=== PATIENT | male | born 1960 | race Caucasian/White ===

== ENCOUNTER 2016-12-30 12:06 | Emergency (ER) | payer BC ==
--- NOTE | 2016-12-30 15:50 | UC ---
Shoulder Pain HPI - HPI Summary HPI Summary: HELPING HIS BROTHER MOVE A FEW DAYS AGO AND FELT PAIN IN HIS RIGHT SHOULDER. SINCE THEN THE PAIN HAS WORSENED AND NOW HE HAS VERY LIMITED ROM. PAIN IS KEEPING HIM UP AT NIGHT. TYLENOL NOT HELPING. - History of Current Complaint Chief Complaint: UCUpperExtremity Stated Complaint: SHOULDER PAIN Time Seen by Provider: 12/30/16 15:44 Hx Obtained From: Patient Onset/Duration: Gradual Onset, Lasting Days, Still Present Timing: Constant Severity Initially: Mild Severity Currently: Moderate Location Of Pain: Is Discrete @ - RIGHT SHOULDER Pain Intensity: 8 Pain Scale Used: 0-10 Numeric Character: Sharp Aggravating Factor(s): Movement Alleviating Factor(s): Rest Associated Signs And Symptoms: Positive: Negative Related History: Dominant Hand Right - Allergies/Home Medications Allergies/Adverse Reactions: Allergies Allergy/AdvReac Type Severity Reaction Status Date / Time No Known Allergies Allergy Verified 12/30/16 13:37 Home Medications: Home Medications Acetaminophen [Acetaminophen Extra Stren] 2 tab PO TID PRN 12/30/16 [History Confirmed 12/30/16] PMH/Surg Hx/FS Hx/Imm Hx Endocrine History Of: Reports: Thyroid Disease - HYPO SECONDARY TO RADIATION [place] , Hypothyroidism Denies: Diabetes Cardiovascular History Of: Denies: Cardiac Disorders, Hypertension Respiratory History Of: Denies: COPD, Asthma GI/ History Of: Denies: Ulcer, Renal Disease Cancer History Of: Reports: Prostate Cancer - Surgical History Surgical History: Yes Surgery Procedure, Year, and Place: PROSTATE REMOVED IN AUGUST 2016 AT [facility]. - Family History Known Family History: Positive: Hypertension - Social History Alcohol Use: Occasionally Substance Use Type: None Smoking Status (MU): Never Smoked Tobacco Review of Systems Constitutional: Negative Skin: Negative Respiratory: Negative Cardiovascular: Negative Gastrointestinal: Negative Musculoskeletal: Arthralgia, Decreased ROM All Other Systems Reviewed And Are Negative: Yes Physical Exam Triage Information Reviewed: Yes Appearance: Well-Appearing, No Pain Distress, Well-Nourished Vital Signs: Initial Vital Signs Temp 98.7 F 12/30/16 13:40 Pulse 90 12/30/16 13:40 Resp 16 12/30/16 13:40 BP 149/92 12/30/16 13:40 Pulse Ox 99 12/30/16 13:40 Vital Signs Reviewed: Yes Eyes: Positive: Conjunctiva Clear ENT: Positive: Hearing grossly normal Neck: Positive: Supple, Nontender, No Lymphadenopathy Respiratory: Positive: No respiratory distress, No accessory muscle use Cardiovascular: Positive: Pulses Normal Abdomen Description: Positive: Soft Musculoskeletal: Positive: No Edema, ROM Limited @ - RIGHT SHOULDER LIMITED WITH BOTH PASSIVE AND ACTIVE ROM, Other: - TTP ANTERIOR RIGHT SHOULDER Neurological: Positive: Muscle Tone Normal Psychological: Positive: Age Appropriate Behavior Skin: Negative: rashes Diagnostics - Radiology RIGHT SHOULDER XRAY Xray Interpretation: Positive (See Comments) - 1. Negative for fracture or malalignment. 2. Mild AC joint osteoarthritis. Small inferior acromial bone spur. 3. Stigmata of calcific tendinopathy. Radiology Interpretation Completed By: Radiologist Shoulder Course/Dx - Differential Dx/Diagnosis Provider Diagnoses: RIGHT SHOULDER CALCIFIC TENDONITIS Discharge - Discharge Plan Condition: Stable Disposition: HOME Prescriptions: Hydrocodone-Acetaminophen [Lorcet 5-325 mg] 1 tab PO QID PRN #20 tab MDD 4 PRN Reason: Pain Naproxen [Naproxen EC] 500 mg PO BID PRN #30 tab PRN Reason: Pain Patient Education Materials: Calcific Tendinitis (ED) Referrals: Orlin Painting MD [Primary Care Provider] - If Needed Lida Rogers MD [Medical Doctor] - 5 Days Additional Instructions: XRAY SHOWS SOME OSTEOARTHRITIS AND CALCIFIC TENDINOPATHY CALCIFIC TENDINITIS/TENDINOSIS YOUR XRAY SHOWS A CALCIUM DEPOSIT IN THE TENDONS OF YOUR SHOULDER. THIS COULD BE CONTRIBUTING TO YOUR SYMPTOMS. SUCCESSFUL MANAGEMENT OFTEN CONSISTS OF MEDICATION, A SLING AND PHYSICAL THERAPY. OCCASIONALLY INJECTIONS MAY BE INDICATED. IN RARE CASES SURGERY MAY BE CONSIDERED. The onset of symptoms is usually spontaneous and is associated with the rapid development of excruciating shoulder pain and inability to sleep. The patient is exceedingly tender to palpation and has extreme pain with any attempted motion of the shoulder. There may be warmth and fullness. Elbow and hand motion are normal and circulation/neurologic examination is intact. FOLLOW-UP WITH [facility]TH[facility] FOR FURTHER EVALUATION AND MANAGEMENT
--- NOTE | 2016-12-30 16:16 | RAD ---
Indication: 4 days RIGHT shoulder pain following twisting injury. Comparison: March 09, 2016 CT. Technique: Internal and external rotation AP and scapular Y views RIGHT shoulder Report: Normal acromioclavicular and glenohumeral joint alignment. Negative for fracture. Mild osteophytosis and capsular hypertrophy at the acromioclavicular joint. Small inferolateral acromial bone spur. Preserved glenohumeral joint space. Amorphous calcification visualized along the course of the rotator cuff extending to the greater tuberosity consistent with calcific tendinitis. Unremarkable soft tissue contours. IMPRESSION: 1. Negative for fracture or malalignment. 2. Mild AC joint osteoarthritis. Small inferior acromial bone spur. 3. Stigmata of calcific tendinopathy.
[2016-12-30 17:05] VITALS: BP 156/98
== END 2016-12-30 16:58 | disposition home or self-care (01) ==
LOC: UCEAST 12:06
DX: M75.31 Calcific tendinitis of right shoulder (principal)
CPT/HCPCS: 99212; G0463